=== PATIENT | male | born 1965 | race Caucasian/White ===

== ENCOUNTER 2024-06-24 11:32 | Outpatient (CLI) | payer BC | END 2024-06-24 11:33 | disposition home or self-care (01) | LOC: CSHWCC 11:32 | PROVIDERS: ATTEND Nurse Practitioner Family | DX: L89.313 Pressure ulcer of right buttock, stage 3 (principal); T81.31XD Disruption of external operation (surgical) wound, not elsewhere classified, subsequent encounter | CPT/HCPCS: 11042 ==

== ENCOUNTER 2024-07-02 09:35 | Outpatient (CLI) | payer BC | END 2024-07-02 09:36 | disposition home or self-care (01) | LOC: CSHWCC 09:35 | PROVIDERS: ATTEND Nurse Practitioner Family | DX: T81.31XD Disruption of external operation (surgical) wound, not elsewhere classified, subsequent encounter (principal); L89.314 Pressure ulcer of right buttock, stage 4 | CPT/HCPCS: 11042; 97605; 99212; G0463 ==

== ENCOUNTER 2024-07-10 14:41 | Outpatient (CLI) | payer BC | END 2024-07-10 14:42 | disposition home or self-care (01) | LOC: CSHWCC 14:41 | PROVIDERS: ATTEND Nurse Practitioner Family | DX: L89.314 Pressure ulcer of right buttock, stage 4 (principal); T81.31XD Disruption of external operation (surgical) wound, not elsewhere classified, subsequent encounter | CPT/HCPCS: 11042; 97605; 99213; G0463 ==

== ENCOUNTER 2024-07-14 14:19 | Outpatient (CLI) | payer BC | END 2024-07-14 14:20 | disposition home or self-care (01) | LOC: CSHWCC 14:19 | PROVIDERS: ATTEND Nurse Practitioner Family | DX: T81.31XD Disruption of external operation (surgical) wound, not elsewhere classified, subsequent encounter (principal); L89.314 Pressure ulcer of right buttock, stage 4 | CPT/HCPCS: 97607 ==

== ENCOUNTER 2024-07-17 12:55 | Outpatient (CLI) | payer BC | END 2024-07-17 12:56 | disposition home or self-care (01) | LOC: CSHWCC 12:55 | PROVIDERS: ATTEND Nurse Practitioner Family | DX: L89.314 Pressure ulcer of right buttock, stage 4 (principal); T81.31XD Disruption of external operation (surgical) wound, not elsewhere classified, subsequent encounter ==